=== PATIENT | male | born 1990 | race American Indian/Alaskan Native ===

== ENCOUNTER 2016-10-26 21:22 | Emergency (ER) | payer BC, OTHER ==
[2016-10-26 21:28] VITALS: BP 137/76; PULSE 78; RESP 16; TEMP 97.5; O2SAT 96
--- NOTE | 2016-10-26 21:50 | ED PDOC ---
HPI: Skin/Bite Injury Time Seen by Provider: 10/26/16 21:30 Chief Complaint (Nursing): Abnormal Skin Integrity Chief Complaint (Provider): andmormal skin integrity History Per: Patient History/Exam Limitations: no limitations Onset/Duration Of Symptoms: Days (x 3) Current Symptoms Are (Timing): Still Present Additional Complaint(s): Dominic Hope is a 26 year old male, with no previous medical complaints, who presents to the ED with complaints of "boils" on his right inner thigh. Pt reports chills. Pt denies any fever or vomiting. Pt denies any additional complaints at this time. PMD: none provided Past Medical History Reviewed: Historical Data, Nursing Documentation, Vital Signs Vital Signs: Last Vital Signs Temp 97.5 F L 10/26/16 21:25 Pulse 78 10/26/16 21:25 Resp 16 10/26/16 21:25 BP 137/76 10/26/16 21:25 Pulse Ox 96 10/26/16 21:55 - Medical History PMH: Anxiety, Asthma - Surgical History Surgical History: No Surg Hx - Family History Family History: States: No Known Family Hx - Immunization History Hx Tetanus Toxoid Vaccination: No Hx Influenza Vaccination: No Hx Pneumococcal Vaccination: No - Home Medications Home Medications: Ambulatory Orders Medication Instructions Recorded Cephalexin [cephalexin] 500 mg PO BID #20 cap 10/26/16 Sulfamethoxazole/Trimethoprim 1 tab PO BID #14 tab 10/26/16 [Bactrim DS 800 mg-160 mg] - Allergies Allergies/Adverse Reactions: Allergies Allergy/AdvReac Type Severity Reaction Status Date / Time No Known Allergies Allergy Verified 05/13/16 18:05 Review of Systems ROS Statement: Except As Marked, All Systems Reviewed And Found Negative Skin: Positive for: Other ("boils" ) Physical Exam - Reviewed Nursing Documentation Reviewed: Yes Vital Signs Reviewed: Yes - Physical Exam Appears: Positive for: Well, Non-toxic, No Acute Distress Head Exam: Positive for: ATRAUMATIC, NORMAL INSPECTION, NORMOCEPHALIC Skin: Positive for: Normal Color, Warm, Dry Neurologic/Psych: Positive for: Alert, Oriented Comments: Inner right groin fluctuant center of a 5x3cm lesion with multiple white heads. Tender to palpation. streaking noted. no testicular swelling noted. - ECG O2 Sat by Pulse Oximetry: 96 (RA) Pulse Ox Interpretation: Normal Medical Decision Making Medical Decision Making: Initial Impression: Abscess Initial Plan: * Drainage #11 scaple 10cc of pus drainage. * reevaluation - pt with streaking and erythema around abscess. * will d/c with keflex and bactim strongly advised to use warm compress to area and to return to ED if lesion worses as indication of warren abx PO tx. pt understands. Scribe Attestation: Documented by Theresa Salmon, acting as a scribe for Cyndee Lux PA-C. Provider Scribe Attestation: All medical record entries made by the Scribe were at my direction and personally dictated by me. I have reviewed the chart and agree that the record accurately reflects my personal performance of the history, physical exam, medical decision making, and the department course for this patient. I have also personally directed, reviewed, and agree with the discharge instructions and disposition Disposition - Clinical Impression Clinical Impression: Abscess - Patient ED Disposition Is Patient to be Admitted: No Counseled Patient/Family Regarding: Diagnosis, Need For Followup, Rx Given - Disposition Disposition: Routine/Home Disposition Time: 22:18 Condition: STABLE Prescriptions: Sulfamethoxazole/Trimethoprim [Bactrim DS 800 mg-160 mg] 1 tab PO BID #14 tab Cephalexin [cephalexin] 500 mg PO BID #20 cap Instructions: Abscess (ED) Forms: [facility] ED School/Work Excuse
== END 2016-10-26 22:24 | disposition home or self-care (01) ==
LOC: H.ER 21:22
DX: L02.91 Cutaneous abscess, unspecified (principal)

== ENCOUNTER 2017-06-20 04:57 | Emergency (ER) | payer BC ==
[2017-06-20] MEDS ORDERED: Oxycodone/Acetaminophen 5/325 mg Tab PO ONE (05:17)
[2017-06-20] MEDS ORDERED: Oxycodone/Acetaminophen 5/325 mg Tab ONE (05:22)
--- NOTE | 2017-06-20 05:26 | ED PDOC ---
HPI: Skin/Bite Injury Time Seen by Provider: 06/20/17 05:10 Chief Complaint (Nursing): Abnormal Skin Integrity Chief Complaint (Provider): left buttock pain History Per: Patient History/Exam Limitations: no limitations Onset/Duration Of Symptoms: Days (1 week) Current Symptoms Are (Timing): Still Present Location Of Injury: Left: Buttock Quality Of Symptoms: Painful Additional History Per: Patient Additional Complaint(s): 27 y/o male presents with left buttock pain x 1 week. Patient states he has had an abscess before and thinks that what this could be. Denies fever, drainage, nausea/vomiting, abdominal pain, changes in bowel movements. No medication taken for relief thus far. Past Medical History Reviewed: Historical Data, Nursing Documentation, Vital Signs Vital Signs: Last Vital Signs Temp 98.6 F 06/20/17 05:09 Pulse 90 06/20/17 05:09 Resp 18 06/20/17 05:09 BP 154/97 H 06/20/17 05:09 Pulse Ox 100 06/20/17 05:29 - Medical History PMH: Anxiety, Asthma - Surgical History Surgical History: No Surg Hx - Family History Family History: States: Unknown Family Hx - Living Arrangements Living Arrangements: With Family - Immunization History Hx Tetanus Toxoid Vaccination: No Hx Influenza Vaccination: No Hx Pneumococcal Vaccination: No - Home Medications Home Medications: Ambulatory Orders Medication Instructions Recorded Cephalexin [cephalexin] 500 mg PO BID #20 cap 10/26/16 Sulfamethoxazole/Trimethoprim 1 tab PO BID #14 tab 10/26/16 [Bactrim DS 800 mg-160 mg] - Allergies Allergies/Adverse Reactions: Allergies Allergy/AdvReac Type Severity Reaction Status Date / Time No Known Allergies Allergy Verified 05/13/16 18:05 Review of Systems ROS Statement: Except As Marked, All Systems Reviewed And Found Negative Skin: Positive for: Other (left buttock pain) Physical Exam - Reviewed Nursing Documentation Reviewed: Yes Vital Signs Reviewed: Yes - Physical Exam Appears: Positive for: Well, Non-toxic, No Acute Distress Cardiovascular/Chest: Positive for: Regular Rate, Rhythm Respiratory: Positive for: Normal Breath Sounds Gastrointestinal/Abdominal: Positive for: Normal Exam Rectal: Positive for: Deferred (refused rectal exam), Other (tender to palpate 9 :00 daniel-rectal position; no lesion, drainage, fluctaunce noted. Exam pharmacists Anuj CHAVIRA). Negative for: Hemorrhoids Extremity: Positive for: Normal ROM Neurologic/Psych: Positive for: Alert, Oriented - ECG O2 Sat by Pulse Oximetry: 100 - Progress ED Course And Treament: Percocet PO, labs, CT pelvis with IV contrast ordered to r/out daniel-rectal abscess Disposition - Clinical Impression Clinical Impression: Left buttock pain - Patient ED Disposition Is Patient to be Admitted: No - Disposition Disposition: Transfer of Care Disposition Time: 06:00 Condition: STABLE Forms: [employer] (Icelandic) Patient Signed Over To: Joel Valle Handoff Comments: pending labs, CT
[2017-06-20 06:06] LABS: BASO # 0.2 K/uL (0.0-0.2); BASO % 1.1 % (0.0-2.0); EOS # 0.1 K/uL (0.0-0.7); EOS % 1.1 % (0.0-4.0); HEMATOCRIT 42.2 % (35.0-51.0); LYMPH # 3.1 K/uL (1.0-4.3); MEAN CELL VOLUME 77.3 fl (80.0-94.0); MEAN CORPUSCULAR HGB CONC 31.1 g/dL (33.0-37.0); MEAN PLATELET VOLUME 8.8 fl (7.2-11.7); MONO # 1.2 K/uL (0.0-0.8); MONO % 8.7 % (0.0-10.0); NEUT # 9.1 K/uL (1.8-7.0); NEUT % 66.1 % (50.0-75.0); NRBC % 0.1 % (0.0-0.0); RED CELL DISTRIBUTION WIDTH 14.1 % (11.5-14.5); WHITE BLOOD COUNT 13.7 K/uL (4.8-10.8)
--- NOTE | 2017-06-20 06:10 | ED PDOC ---
- Laboratory Results Result Diagrams: 06/20/17 05:35 06/20/17 05:35 - ECG O2 Sat by Pulse Oximetry: 100 Medical Decision Making Medical Decision Makin Patient signed out to me from DARRELL Cesar pending CT and labs. 699 Patient signed out from me to Dr. Chaidez pending CT and lab work. Scribe Attestation: Documented by Kellie Huggins acting as a scribe for Joel Valle MD. Scribe Attestation: All medical record entries made by the Scribe were at my direction and personally dictated by me. I have reviewed the chart and agree that the record accurately reflects my personal performance of the history, physical exam, medical decision making, and the department course for this patient. I have also personally directed, reviewed, and agree with the discharge instructions and disposition. Disposition - Clinical Impression Clinical Impression: Left buttock pain, Perianal cellulitis - POA Present On Arrival: None - Disposition Disposition: Transfer of Care Disposition Time: 07:00 Condition: FAIR Patient Signed Over To: Gianni Chaidez Handoff Comments: pending CT and labs
[2017-06-20 06:15] LABS: PARTIAL THROMBOPLASTIN TIME 32.9 Seconds (25.6-37.1)
[2017-06-20 06:29] LABS: ALB/GLOB RATIO 1.5 (1.0-2.1); ALKALINE PHOSPHATASE 63 U/L (38-126); ALT/SGPT 42 U/L (21-72); AST/SGOT 30 U/L (17-59); BILIRUBIN,TOTAL 0.7 mg/dl (0.2-1.3); BLOOD UREA NITROGEN 15 mg/dl (9-20); CALCIUM 9.6 mg/dL (8.4-10.2); CARBON DIOXIDE 27 mmol/L (22-30); CHLORIDE 104 mmol/L (98-107); GFR AFRICAN-AMERICAN > 60; GLUCOSE,RANDOM 97 mg/dL (75-110); POTASSIUM 4.1 MMOL/L (3.6-5.0); SODIUM 137 mmol/l (132-148); TOTAL PROTEIN 7.9 G/DL (6.3-8.2)
--- NOTE | 2017-06-20 06:59 | ED PDOC ---
- Laboratory Results Result Diagrams: 06/20/17 05:35 06/20/17 05:35 - ECG O2 Sat by Pulse Oximetry: 100 (RA) Pulse Ox Interpretation: Normal Medical Decision Making Medical Decision Making: Patient signed out to provider at [address] Pending CT and reevaluation. Rectal exam reveals tenderness and induration left perianal area. No fluctuance. CT reveals early abscess but no clinical abscess on exam. Scribe Attestation Documented by Alma Rosa Norwood acting as a scribe for Gianni Chaidez MD. Provider Attestation All medical record entries made by the Scribe were at my direction and personally dictated by me. I have reviewed the chart and agree that the record accurately reflects my personal performance of the history, physical exam, medical decision making, and the department course for this patient. I have also personally directed, reviewed, and agree with the discharge instructions and disposition. Disposition - Clinical Impression Clinical Impression: Left buttock pain, Perianal cellulitis - POA Present On Arrival: None - Disposition Referrals: [facility] [Outside] Disposition: Routine/Home Disposition Time: 09:31 Condition: FAIR Prescriptions: Amoxicillin/Potassium Clav [Augmentin 500 mg-125 mg] 1 tab PO TID #30 tab traMADol [Ultram] 50 mg PO Q8 #10 tab Instructions: Cellulitis (ED) Forms: [employer] (Polish)
[2017-06-20] MEDS ORDERED: Iohexol 300 100 ML IJ ONE (07:50)
[2017-06-20] MEDS ORDERED: Sodium Chloride 0.9% 50 ML IV ONE (07:50)
--- NOTE | 2017-06-20 09:16 | CT ---
PROCEDURE: CT Pelvis with contrast HISTORY: r/out daniel-rectal abscess COMPARISON: None. TECHNIQUE: Contiguous axial images of the pelvis with contrast. Coronal and sagittal reformats generated. Contrast dose: 95 mL omni 300 Radiation dose: Total exam DLP = 673 mGy-cm. This CT exam was performed using one or more of the following dose reduction techniques: Automated exposure control, adjustment of the mA and/or kV according to patient size, and/or use of iterative reconstruction technique. FINDINGS: BLADDER: Unremarkable. No mass. REPRODUCTIVE ORGANS: Unremarkable. VISUALIZED BOWEL: Unremarkable. PERITONEUM: Unremarkable, as visualized. No free fluid. No free air. LYMPH NODES: Unremarkable. No enlarged lymph nodes. VASCULATURE: Unremarkable. BONES: No fracture or focal lesion. OTHER FINDINGS: There is evidence of a small round inflammatory process in the inferior left posterior perineal region posterior to the rectum. This measures 2.5 x 2.4 x 1.9 centimeters. Small amount of low density is seen centrally and there is some mild induration of the adjacent fat. Finding is consistent with a small perirectal or perineal abscess. Remainder of the rectum is otherwise unremarkable. IMPRESSION: Small posterior peritoneal inflammatory process with a mild amount of low density centrally suggestive of a perineal abscess. Remainder of the examination is otherwise unremarkable.
[2017-06-20 09:41] VITALS: BP 123/77; PULSE 66; RESP 16; TEMP 98.1
[2017-06-21 00:58] VITALS: O2SAT 100
== END 2017-06-20 09:44 | disposition home or self-care (01) ==
LOC: H.ER 04:57
DX: L03.315 Cellulitis of perineum (principal); F41.9 Anxiety disorder, unspecified; J45.909 Unspecified asthma, uncomplicated
CPT/HCPCS: 72193; 80053; 85025; 85610; 85730; 99283; Q9967

== ENCOUNTER 2017-06-20 20:36 | Inpatient (IN) | payer BC ==
[2017-06-20] MEDS ORDERED: Sodium Chloride 0.9% 1,000 ML IV STA (21:00)
[2017-06-20] MEDS ORDERED: Oxycodone/Acetaminophen 5/325 mg Tab PO ONE (21:00)
--- NOTE | 2017-06-20 21:21 | ED PDOC ---
HPI: Skin/Bite Injury Time Seen by Provider: 06/20/17 20:48 Chief Complaint (Nursing): Abnormal Skin Integrity Chief Complaint (Provider): left buttock pain History Per: Patient History/Exam Limitations: no limitations Onset/Duration Of Symptoms: Days (8) Current Symptoms Are (Timing): Still Present Location Of Injury: Left: Buttock Quality Of Symptoms: Painful Additional History Per: Patient Additional Complaint(s): 27 y/o male presents with pain to left inner buttock x 8 days. Patient was evaluated here yesterday for same, CT showed early perineal vs perirectal abscess. Patient states he was discharged with antibiotics but did not take them because he "doesn't like taking medications". Patient states pain worse when laying down. Denies fever, nausea/vomiting, abdominal pain, changes in bowel movements, drainage at site of pain. Past Medical History Reviewed: Historical Data, Nursing Documentation, Vital Signs Vital Signs: Last Vital Signs Temp 98.3 F 06/20/17 22:16 Pulse 84 06/20/17 22:16 Resp 14 06/20/17 22:16 BP 131/85 06/20/17 22:16 Pulse Ox 99 06/20/17 22:11 - Medical History PMH: Anxiety, Asthma - Surgical History Surgical History: No Surg Hx - Family History Family History: States: Unknown Family Hx - Immunization History Hx Tetanus Toxoid Vaccination: No Hx Influenza Vaccination: No Hx Pneumococcal Vaccination: No - Home Medications Home Medications: Ambulatory Orders Medication Instructions Recorded No Known Home Med 06/20/17 - Allergies Allergies/Adverse Reactions: Allergies Allergy/AdvReac Type Severity Reaction Status Date / Time No Known Allergies Allergy Verified 05/13/16 18:05 Review of Systems ROS Statement: Except As Marked, All Systems Reviewed And Found Negative Skin: Positive for: Other (left inner buttock pain) Physical Exam - Reviewed Nursing Documentation Reviewed: Yes Vital Signs Reviewed: Yes - Physical Exam Appears: Positive for: Well, Non-toxic, No Acute Distress Head Exam: Positive for: ATRAUMATIC, NORMAL INSPECTION, NORMOCEPHALIC Skin: Positive for: Normal Color Eye Exam: Positive for: Normal appearance Cardiovascular/Chest: Positive for: Regular Rate, Rhythm Respiratory: Positive for: Normal Breath Sounds Rectal: Positive for: Deferred, Other (tender area with induration noted left daniel-rectal area; no lesion, fluctuance. Yahir Leung RN) Extremity: Positive for: Normal ROM Neurologic/Psych: Positive for: Alert, Oriented - Laboratory Results Result Diagrams: 06/20/17 21:15 06/20/17 21:15 - ECG O2 Sat by Pulse Oximetry: 99 - Progress ED Course And Treament: Case discussed with ED attending Dr. Orona, will repeat labs, draw blood cx, admit for IV abx, and surgical consult labs, IV zosyn, PO percocet Case discussed with Dr. Bernardo, Surgeon on-call regarding consult. Case discussed with Dr. Sanchez, assistant to the president on-call, regarding consult. Case discussed with Dr. Wiggins, Hospitalist on-call, for admission. Disposition - Clinical Impression Clinical Impression: Perirectal abscess - Patient ED Disposition Is Patient to be Admitted: Yes - Disposition Disposition Time: 22:11 Condition: FAIR
[2017-06-20 21:25] LABS: BASO # 0.1 K/uL (0.0-0.2); BASO % 0.8 % (0.0-2.0); EOS # 0.2 K/uL (0.0-0.7); EOS % 1.2 % (0.0-4.0); LYMPH # 2.7 K/uL (1.0-4.3); LYMPH % 20.4 % (20.0-40.0); MEAN CELL VOLUME 76.8 fl (80.0-94.0); MEAN CORPUSCULAR HEMOGLOBIN 23.9 pg (27.0-31.0); MEAN CORPUSCULAR HGB CONC 31.1 g/dL (33.0-37.0); MEAN PLATELET VOLUME 8.5 fl (7.2-11.7); MONO # 1.2 K/uL (0.0-0.8); NEUT # 9.1 K/uL (1.8-7.0); NEUT % 68.6 % (50.0-75.0); RED CELL DISTRIBUTION WIDTH 13.9 % (11.5-14.5); WHITE BLOOD COUNT 13.3 K/uL (4.8-10.8)
[2017-06-20] MEDS ORDERED: Piperacillin/Tazobact 3.375 GM in Sodium Chloride 0.9% 100 ML IV ONE (21:30)
[2017-06-20 21:36] LABS: ALB/GLOB RATIO 1.5 (1.0-2.1); ALCOHOL SERUM < 10 mg/dl (0-10); ALKALINE PHOSPHATASE 63 U/L (38-126); ALT/SGPT 40 U/L (21-72); AST/SGOT 27 U/L (17-59); BILIRUBIN,TOTAL 0.3 mg/dl (0.2-1.3); BLOOD UREA NITROGEN 14 mg/dl (9-20); CALCIUM 9.7 mg/dL (8.4-10.2); CARBON DIOXIDE 25 mmol/L (22-30); CHLORIDE 105 mmol/L (98-107); GFR AFRICAN-AMERICAN > 60; GLUCOSE,RANDOM 102 mg/dL (75-110); POTASSIUM 4.3 MMOL/L (3.6-5.0); SODIUM 142 mmol/l (132-148); TOTAL PROTEIN 7.8 G/DL (6.3-8.2)
--- NOTE | 2017-06-20 22:42 | CP.PCM.HP ---
History of Present Illness - History of Present Illness History of Present Illness: PCP: None Chief complaint: Left buttock pain The patient is seen and examined in the ED HPI: 27 years old male with hx of Asthma and possibly perirectal abscess, came to the ED with 8 days of pain at the left intergluteal region, which increases when he sits or lie down on his back. The pain has been continuous. He came to the ED earlier today but was discharged on antibiotics which he has not taken because the pain is worse.No fever, diarrhea, constipation, dysuria nor urinary frequencies. No abdominal pain. 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 PSH: Denies SH: Light smoker; Social use of Alcohol; No illegal drug use FH: States: Unknown Family Hx Allergies: NKDA Medication: Not using any medication Present on Admission - Present on Admission Any Indicators Present on Admission: No History of DVT/PE: No History of Uncontrolled Diabetes: No Urinary Catheter: No Decubitus Ulcer Present: No Review of Systems - Constitutional Constitutional: absent: Chills, Fatigue, Fever, Frequent Falls, Headache - EENT Eyes: absent: Diplopia, Floaters, Requires Corrective Lenses, Sees Flashes Ears: absent: Decreased Hearing, Ear Discharge, Ear Pain, Tinnitus Nose/Mouth/Throat: absent: Epistaxis, Nasal Congestion, Sinus Pain, Sinus Pressure - Cardiovascular Cardiovascular: Dyspnea. absent: Chest Pain, Edema - Respiratory Respiratory: Cough, Dyspnea, Wheezing - Gastrointestinal Gastrointestinal: absent: Constipation, Diarrhea, Nausea, Vomiting - Genitourinary Genitourinary: absent: Dysuria, Flank Pain, Hematuria, Urinary Frequency - Musculoskeletal Musculoskeletal: absent: Arthralgias, Back Pain, Muscle Weakness, Numbness - Integumentary Integumentary: Change in Nails. absent: Pruritus, Rash, Skin Ulcer, Sores, Striae, Swelling Additional comments: third nail of the left foot with blackened and thickened nail - Neurological Neurological: Headaches. absent: Confusion, Dizziness, Focal Weakness, Loss of Vision - Psychiatric Psychiatric: absent: Anxiety, Depression, Panic Attacks - Endocrine Endocrine: absent: Palpitations, Polydipsia, Polyphagia, Polyuria - Hematologic/Lymphatic Hematologic: absent: Easy Bleeding, Easy Bruising Past Patient History - Past Medical History & Family History Past Medical History?: Yes - Past Social History Smoking Status: Light Smoker < 10 Cigarettes Daily Chewing Tobacco Use: No Cigar Use: No Alcohol: Social Home Situation {Lives}: With Family - CARDIAC Hx Cardiac Disorders: No - PULMONARY Hx Respiratory Disorders: Yes Hx Asthma: Yes - NEUROLOGICAL Hx Neurological Disorder: No - HEENT Hx HEENT Problems: No - RENAL Hx Chronic Kidney Disease: No - ENDOCRINE/METABOLIC Hx Endocrine Disorders: No - HEMATOLOGICAL/ONCOLOGICAL Hx Blood Disorders: No - INTEGUMENTARY Hx Dermatological Problems: No - MUSCULOSKELETAL/RHEUMATOLOGICAL Hx Musculoskeletal Disorders: No - GASTROINTESTINAL Hx Gastrointestinal Disorders: No - GENITOURINARY/GYNECOLOGICAL Hx Genitourinary Disorders: No - PSYCHIATRIC Hx Psychophysiologic Disorder: Yes Hx Anxiety: Yes - SURGICAL HISTORY Hx Surgeries: No - ANESTHESIA Hx Anesthesia: No Meds Allergies/Adverse Reactions: Allergies Allergy/AdvReac Type Severity Reaction Status Date / Time No Known Allergies Allergy Verified 05/13/16 18:05 Physical Exam - Constitutional Appears: No Acute Distress - Head Exam Head Exam: ATRAUMATIC, NORMAL INSPECTION, NORMOCEPHALIC - Eye Exam Eye Exam: EOMI, Normal appearance Pupil Exam: NORMAL ACCOMODATION, PERRL - ENT Exam ENT Exam: Mucous Membranes Moist, Normal Exam, Normal External Ear Exam - Neck Exam Neck exam: Positive for: Full Rom, Normal Inspection. Negative for: Lymphadenopathy, Tenderness - Respiratory Exam Respiratory Exam: Clear to Auscultation Bilateral. absent: Rales, Rhonchi, Wheezes - Cardiovascular Exam Cardiovascular Exam: REGULAR RHYTHM, RRR, +S1, +S2. absent: Gallop - GI/Abdominal Exam GI & Abdominal Exam: Normal Bowel Sounds, Soft. absent: Mass, Tenderness - Rectal Exam Additional comments: Left intergluteal with tender induration with no drainage. - Extremities Exam Extremities exam: Positive for: full ROM, normal inspection. Negative for: calf tenderness, pedal edema - Back Exam Back exam: NORMAL INSPECTION. absent: CVA tenderness (L), CVA tenderness (R) - Neurological Exam Neurological exam: Alert, CN II-XII Intact, Oriented x3, Reflexes Normal - Psychiatric Exam Psychiatric exam: Normal Affect, Normal Mood - Skin Skin Exam: Dry, Intact, Normal Color, Warm Results - Vital Signs Recent Vital Signs: Last Vital Signs Temp 98.3 F 06/20/17 22:16 Pulse 84 06/20/17 22:16 Resp 14 06/20/17 22:16 BP 131/85 06/20/17 22:16 Pulse Ox 99 06/20/17 22:11 - Labs Result Diagrams: 06/20/17 21:15 06/20/17 21:15 Labs: Laboratory Results - last 24 hr 06/20/17 06/20/17 06/20/17 21:15 21:15 21:15 WBC 13.3 H RBC 5.47 Hgb 13.1 Hct 42.0 MCV 76.8 L MCH 23.9 L MCHC 31.1 L RDW 13.9 Plt Count 240 MPV 8.5 Neut % (Auto) 68.6 Lymph % (Auto) 20.4 [place] % (Auto) 9.0 Eos % (Auto) 1.2 Baso % (Auto) 0.8 Neut # 9.1 H Lymph # 2.7 [place] # 1.2 H Eos # 0.2 Baso # 0.1 Sodium 142 Potassium 4.3 Chloride 105 Carbon Dioxide 25 Anion Gap 16 BUN 14 Creatinine 0.9 Est GFR ( Amer) > 60 Est GFR (Non-Af Amer) > 60 Random Glucose 102 Lactic Acid 1.1 Calcium 9.7 Total Bilirubin 0.3 AST 27 ALT 40 Alkaline Phosphatase 63 Total Protein 7.8 Albumin 4.7 Globulin 3.1 Albumin/Globulin Ratio 1.5 Alcohol, Quantitative < 10 - Imaging and Cardiology CT scan - pelvis Status: Report reviewed by me Additional comment: Small Posterior Peritoneal inflammatory process with mild amount of low density centrally , suggestion of Perineal abscess. Assessment & Plan - Assessment and Plan (Free Text) Assessment: #. Left Perianal abscess #. leukocytosis Plan: 27 years old male with hx of Asthma and possibly perirectal abscess, came to the ED with 8 days of pain at the left intergluteal region. Earlier in the day , he came to the EDwith the same problem, but was discharged on antibiotics. #. Left Perianal abscess - Consult Dr Bernardo surgeon - follow blood culture - Zosyn - Pain management with Toradol #. leukocytosis - Follow WBC #. DVT Prophylaxis with SCD #. Code Status: Full - Date & Time Date: 06/20/17 Time: 22:42
[2017-06-20] MEDS ORDERED: Albuterol 0.083% Inhal Sol (2.5 mg/3 mL) UD INH PRN (23:05)
[2017-06-20] MEDS: Sodium Chloride 0.9% 1,000 ML IV SCH (23:20)
--- NOTE | 2017-06-21 00:02 | CP.PCM.CON ---
History of Present Illness - History of Present Illness History of Present Illness: General Surgery Consult Note for Dr. Bernardo Reason for consult: perirectal abscess 27 M with PMH of asthma presents to ED for complaint of left gluteal pain. He states that he had the pain for 8 days. He states that he have never experienced this pain before. He reports a gradual onset and states it has gotten progressively worse. Patient was in th ED earlier in the day and was subsequently discharged on oral antibiotics. Patient nevern filled the precription and returned to the ED because he could not endure the pain. He rates pain as severe. He describes the pain as constant and sharp located in the left gluteal fold. Denies any alleviating factors. he reports the pain is exacerbated by sitting or lying down on his backside. PMD: Denies PMH: Asthma Allergies: NKDA Meds: Denies PSH: Denies FH: Unknown Social: current smoker 5-10 cigarettes per day; EtOH socially; Denies illicit drug use Review of Systems - Review of Systems All systems: reviewed and no additional remarkable complaints except (left gluteal pain) Past Patient History - Past Medical History & Family History Past Medical History?: Yes - Past Social History Smoking Status: Light Smoker < 10 Cigarettes Daily Chewing Tobacco Use: No Cigar Use: No Alcohol: Social Home Situation {Lives}: With Family - CARDIAC Hx Cardiac Disorders: No - PULMONARY Hx Respiratory Disorders: Yes Hx Asthma: Yes - NEUROLOGICAL Hx Neurological Disorder: No - HEENT Hx HEENT Problems: No - RENAL Hx Chronic Kidney Disease: No - ENDOCRINE/METABOLIC Hx Endocrine Disorders: No - HEMATOLOGICAL/ONCOLOGICAL Hx Blood Disorders: No - INTEGUMENTARY Hx Dermatological Problems: No - MUSCULOSKELETAL/RHEUMATOLOGICAL Hx Musculoskeletal Disorders: No - GASTROINTESTINAL Hx Gastrointestinal Disorders: No - GENITOURINARY/GYNECOLOGICAL Hx Genitourinary Disorders: No - PSYCHIATRIC Hx Psychophysiologic Disorder: No - SURGICAL HISTORY Hx Surgeries: No - ANESTHESIA Hx Anesthesia: No Meds Allergies/Adverse Reactions: Allergies Allergy/AdvReac Type Severity Reaction Status Date / Time No Known Allergies Allergy Verified 05/13/16 18:05 - Medications Medications: Current Medications Albuterol Sulfate (Albuterol 0.083% Inhal [place] (2.5 Mg/3 Ml) Ud) 2.5 mg INH RQ6 PRN PRN Reason: Shortness of Breath Piperacillin Sod/Tazobactam (Sod 3.375 gm/ Sodium Chloride) 100 mls @ 100 mls/ hr IVPB Q6 JORJE PRN Reason: Protocol Sodium Chloride (Sodium Chloride 0.9%) 1,000 mls @ 100 mls/hr IV .Q10H [facility] Stop: 06/21/17 23:03 Last Admin: 06/20/17 23:20 Dose: 100 mls/hr Ketorolac Tromethamine (Toradol) 15 mg IVP Q6 PRN PRN Reason: Pain, moderate (4-7) Ketorolac Tromethamine (Toradol) 30 mg IVP Q6 PRN PRN Reason: Pain, severe (8-10) Physical Exam - Constitutional Appears: No Acute Distress - Head Exam Head Exam: ATRAUMATIC, NORMOCEPHALIC - Eye Exam Eye Exam: EOMI, Normal appearance Pupil Exam: PERRL - ENT Exam ENT Exam: Mucous Membranes Moist - Respiratory Exam Respiratory Exam: NORMAL BREATHING PATTERN - Cardiovascular Exam Cardiovascular Exam: REGULAR RHYTHM - GI/Abdominal Exam GI & Abdominal Exam: Soft. absent: Distended, Firm, Guarding, Rebound, Tenderness - Rectal Exam Rectal Exam: Deferred (refused) - Extremities Exam Extremities exam: Positive for: normal capillary refill, pedal pulses present - Neurological Exam Neurological exam: Alert, CN II-XII Intact, Oriented x3 - Psychiatric Exam Psychiatric exam: Normal Affect, Normal Mood - Skin Skin Exam: Dry, Warm Additional comments: Left gluteal fold indurated, no fluctuance or erythema, tender to touch Results - Vital Signs Recent Vital Signs: Last Vital Signs Temp 98.2 F 06/20/17 22:56 Pulse 66 06/20/17 22:56 Resp 20 06/20/17 22:56 BP 116/75 06/20/17 22:56 Pulse Ox 98 06/20/17 22:56 - Labs Result Diagrams: 06/21/17 07:30 06/21/17 07:30 Labs: Laboratory Results - last 24 hr 06/20/17 06/20/17 06/20/17 21:15 21:15 21:15 WBC 13.3 H RBC 5.47 Hgb 13.1 Hct 42.0 MCV 76.8 L MCH 23.9 L MCHC 31.1 L RDW 13.9 Plt Count 240 MPV 8.5 Neut % (Auto) 68.6 Lymph % (Auto) 20.4 [place] % (Auto) 9.0 Eos % (Auto) 1.2 Baso % (Auto) 0.8 Neut # 9.1 H Lymph # 2.7 [place] # 1.2 H Eos # 0.2 Baso # 0.1 Sodium 142 Potassium 4.3 Chloride 105 Carbon Dioxide 25 Anion Gap 16 BUN 14 Creatinine 0.9 Est GFR ( Amer) > 60 Est GFR (Non-Af Amer) > 60 Random Glucose 102 Lactic Acid 1.1 Calcium 9.7 Total Bilirubin 0.3 AST 27 ALT 40 Alkaline Phosphatase 63 Total Protein 7.8 Albumin 4.7 Globulin 3.1 Albumin/Globulin Ratio 1.5 Alcohol, Quantitative < 10 Assessment & Plan - Assessment and Plan (Free Text) Plan: 27 M with perirectal abscess -IV fluids -IV antibiotics -Analgesics PRN -Discussed with Dr. Az Altamirano PGY1
[2017-06-21] MEDS ORDERED: Chlorhexidine Gluconate 1 APPL/PKT TP ONE (00:10)
[2017-06-21] MEDS: Piperacillin/Tazobact 3.375 GM in Sodium Chloride 0.9% 100 ML IVPB SCH ×3 (04:50→17:05)
[2017-06-21 07:53] LABS: MEAN CELL VOLUME 77.6 fl (80.0-94.0); MEAN CORPUSCULAR HEMOGLOBIN 23.8 pg (27.0-31.0); MEAN CORPUSCULAR HGB CONC 30.6 g/dL (33.0-37.0); RED CELL DISTRIBUTION WIDTH 14.2 % (11.5-14.5); WHITE BLOOD COUNT 13.8 K/uL (4.8-10.8)
[2017-06-21 08:18] LABS: BLOOD UREA NITROGEN 10 mg/dl (9-20); CALCIUM 9.1 mg/dL (8.4-10.2); CARBON DIOXIDE 28 mmol/L (22-30); CHLORIDE 106 mmol/L (98-107); GFR AFRICAN-AMERICAN > 60; GLUCOSE,RANDOM 95 mg/dL (75-110); POTASSIUM 4.1 MMOL/L (3.6-5.0); SODIUM 140 mmol/l (132-148)
--- NOTE | 2017-06-21 10:45 | CP.PCM.PN ---
Subjective - Date & Time of Evaluation Date of Evaluation: 06/21/17 Time of Evaluation: 10:30 - Subjective Subjective: No fever complains of perirectal pain no CP no SOB no abd pain Objective - Vital Signs/Intake and Output Vital Signs (last 24 hours): Temp Pulse Resp BP Pulse Ox 98.6 F 66 20 121/75 99 06/21/17 08:26 06/21/17 08:26 06/21/17 08:26 06/21/17 08:26 06/21/17 08:26 - Medications Medications: Current Medications Albuterol Sulfate (Albuterol 0.083% Inhal [place] (2.5 Mg/3 Ml) Ud) 2.5 mg INH RQ6 PRN PRN Reason: Shortness of Breath Piperacillin Sod/Tazobactam (Sod 3.375 gm/ Sodium Chloride) 100 mls @ 100 mls/ hr IVPB Q6 JORJE PRN Reason: Protocol Last Admin: 06/21/17 04:50 Dose: 100 mls/hr Sodium Chloride (Sodium Chloride 0.9%) 1,000 mls @ 100 mls/hr IV .Q10H [facility] Stop: 06/21/17 23:03 Last Admin: 06/20/17 23:20 Dose: 100 mls/hr Ketorolac Tromethamine (Toradol) 15 mg IVP Q6 PRN PRN Reason: Pain, moderate (4-7) Ketorolac Tromethamine (Toradol) 30 mg IVP Q6 PRN PRN Reason: Pain, severe (8-10) - Labs Labs: 06/21/17 07:30 06/21/17 07:30 PT 14.2 Seconds (9.8-13.1) H 06/21/17 07:30 INR 1.3 (0.9-1.2) H 06/21/17 07:30 APTT 32.0 Seconds (25.6-37.1) 06/21/17 07:30 - Constitutional Appears: No Acute Distress - Head Exam Head Exam: NORMAL INSPECTION, NORMOCEPHALIC - Eye Exam Eye Exam: EOMI, Normal appearance, PERRL Pupil Exam: NORMAL ACCOMODATION - ENT Exam ENT Exam: Mucous Membranes Moist, Normal External Ear Exam - Neck Exam Neck Exam: Full ROM. absent: Meningismus - Respiratory Exam Respiratory Exam: NORMAL BREATHING PATTERN. absent: Respiratory Distress - Cardiovascular Exam Cardiovascular Exam: REGULAR RHYTHM, +S1, +S2 - GI/Abdominal Exam GI & Abdominal Exam: Soft, Normal Bowel Sounds. absent: Tenderness - Rectal Exam Additional comments: left buttock/perianal area tenderness, induration - Extremities Exam Extremities Exam: Full ROM, Normal Inspection. absent: Calf Tenderness, Pedal Edema - Back Exam Back Exam: absent: CVA tenderness (L), CVA tenderness (R) - Neurological Exam Neurological Exam: Abnormal Gait, Alert, Awake, CN II-XII Intact, Normal Gait, Oriented x3 Neuro motor strength exam: Left Upper Extremity: 5, Right Upper Extremity: 5, Left Lower Extremity: 5, Right Lower Extremity: 5 - Psychiatric Exam Psychiatric exam: Normal Affect, Normal Mood - Skin Skin Exam: Dry, Normal Color, Warm Assessment and Plan - Assessment and Plan (Free Text) Assessment: 27 years old male with hx of Asthma and possibly perirectal abscess, came to the ED with 8 days of pain at the left intergluteal region. He was seen aarlier in the day , CT scan showed Perianal abscess . He was d/c home on Po antibiotics however pt came back to the ED with the same problem. #. Left Perianal abscess - Pt started on IV Zosyn - Consult Dr Bernardo surgeon for poss I&D - as per financial institution president, no drainable abscess - rec to cont IV abx - follow blood culture - Pain management with Toradol - Warm compress to area #. DVT Prophylaxis with SCD
[2017-06-21] MEDS: Sodium Chloride 0.9% 1,000 ML IV SCH ×2 (11:07→19:22)
[2017-06-21 15:56] VITALS: BP 143/77; PULSE 68; RESP 18; TEMP 98.3; O2SAT 97
--- NOTE | 2017-06-21 22:15 | CP.PCM.DIS ---
Provider - Provider Date of Admission: 06/20/17 22:10 Attending physician: Jignesh Wiggins Primary care physician: NONE Consults: Dr Bernardo General Surgeon Time Spent in preparation of Discharge (in minutes): 15 Diagnosis - Discharge Diagnosis (1) Neutrophilic leukocytosis Status: Acute (2) Perirectal abscess Status: Acute Hospital Course - Lab Results Lab Results: Micro Results 06/20/17 21:00 Blood-Venous Blood Culture - Preliminary NO GROWTH AFTER 24 HOURS 06/20/17 21:15 Blood-Venous Blood Culture - Preliminary NO GROWTH AFTER 24 HOURS Most Recent Lab Values WBC 13.8 K/uL (4.8-10.8) H 06/21/17 07:30 RBC 5.29 Mil/uL (4.40-5.90) 06/21/17 07:30 Hgb 12.6 g/dL (12.0-18.0) 06/21/17 07:30 Hct 41.0 % (35.0-51.0) 06/21/17 07:30 MCV 77.6 fl (80.0-94.0) L 06/21/17 07:30 MCH 23.8 pg (27.0-31.0) L 06/21/17 07:30 MCHC 30.6 g/dL (33.0-37.0) L 06/21/17 07:30 RDW 14.2 % (11.5-14.5) 06/21/17 07:30 Plt Count 222 K/uL (130-400) 06/21/17 07:30 MPV 8.5 fl (7.2-11.7) 06/20/17 21:15 Neut % (Auto) 68.6 % (50.0-75.0) 06/20/17 21:15 Lymph % (Auto) 20.4 % (20.0-40.0) 06/20/17 21:15 [place] % (Auto) 9.0 % (0.0-10.0) 06/20/17 21:15 Eos % (Auto) 1.2 % (0.0-4.0) 06/20/17 21:15 Baso % (Auto) 0.8 % (0.0-2.0) 06/20/17 21:15 Neut # 9.1 K/uL (1.8-7.0) H 06/20/17 21:15 Lymph # 2.7 K/uL (1.0-4.3) 06/20/17 21:15 [place] # 1.2 K/uL (0.0-0.8) H 06/20/17 21:15 Eos # 0.2 K/uL (0.0-0.7) 06/20/17 21:15 Baso # 0.1 K/uL (0.0-0.2) 06/20/17 21:15 PT 14.2 Seconds (9.8-13.1) H 06/21/17 07:30 INR 1.3 (0.9-1.2) H 06/21/17 07:30 APTT 32.0 Seconds (25.6-37.1) 06/21/17 07:30 Sodium 140 mmol/l (132-148) 06/21/17 07:30 Potassium 4.1 MMOL/L (3.6-5.0) 06/21/17 07:30 Chloride 106 mmol/L (98-107) 06/21/17 07:30 Carbon Dioxide 28 mmol/L (22-30) 06/21/17 07:30 Anion Gap 10 (10-20) 06/21/17 07:30 BUN 10 mg/dl (9-20) 06/21/17 07:30 Creatinine 0.9 mg/dl (0.8-1.5) 06/21/17 07:30 Est GFR ( Amer) > 60 06/21/17 07:30 Est GFR (Non-Af Amer) > 60 06/21/17 07:30 Random Glucose 95 mg/dL (75-110) 06/21/17 07:30 Lactic Acid 1.1 MMOL/L (0.7-2.1) 06/20/17 21:15 Calcium 9.1 mg/dL (8.4-10.2) 06/21/17 07:30 Total Bilirubin 0.3 mg/dl (0.2-1.3) 06/20/17 21:15 AST 27 U/L (17-59) 06/20/17 21:15 ALT 40 U/L (21-72) 06/20/17 21:15 Alkaline Phosphatase 63 U/L (38-126) 06/20/17 21:15 Total Protein 7.8 G/DL (6.3-8.2) 06/20/17 21:15 Albumin 4.7 g/dL (3.5-5.0) 06/20/17 21:15 Globulin 3.1 gm/dL (2.2-3.9) 06/20/17 21:15 Albumin/Globulin Ratio 1.5 (1.0-2.1) 06/20/17 21:15 Urine Opiates Screen Negative (NEGATIVE) 06/21/17 05:00 Urine Methadone Screen Negative (NEGATIVE) 06/21/17 05:00 Ur Barbiturates Screen Negative (NEGATIVE) 06/21/17 05:00 Ur Phencyclidine Scrn Negative (NEGATIVE) 06/21/17 05:00 Ur Amphetamines Screen Negative (NEGATIVE) 06/21/17 05:00 U Benzodiazepines Scrn Negative (NEGATIVE) 06/21/17 05:00 U Oth Cocaine Metabols Negative (NEGATIVE) 06/21/17 05:00 U Cannabinoids Screen Negative (NEGATIVE) 06/21/17 05:00 Alcohol, Quantitative < 10 mg/dl (0-10) 06/20/17 21:15 - Hospital Course Hospital Course: 27 years old male with hx of Asthma and possibly perirectal abscess, came to the ED with 8 days of pain at the left intergluteal region. He was seen earlier in the day , CT scan showed Perianal abscess . He was d/c home on Po antibiotics however pt came back to the ED with the same problem. A&P # left Perianal Abscess - IV Zosyn started Q6H - Dr Bernardo general surgeon consulted - As per educational institution president, No I&D at this time - Continue IV antibiotics - Follow Blood cultures - Pain management with Toradol - Warm compress to affected hi #. Leukocytosis - Follow WBC - Pain management with Toradol - Warm compress to area The patient decided to dign and leave the hospital against medical advice. Risks were explained to him. He was told to fill the prescriptions that ht had in his pos contact his PCP if Fever. worsening Buttock pain, Drainage of the abscess or any symptom that makes him feel sick. Patient Signed AMA Discharge Exam - Head Exam Head Exam: NORMAL INSPECTION, NORMOCEPHALIC Discharge Plan - Follow Up Plan Condition: FAIR Disposition: AGAINST MEDICAL ADVICE Patient education suggested?: No Instructions: Abscess (GEN)
== END 2017-06-21 20:34 | disposition left against medical advice (07) | DRG 395 ==
LOC: H.ER 20:36 → H.ERHOLD 22:10 → H.MEDSURG1 22:47
PROVIDERS: ADMIT Internal Medicine; ATTEND Internal Medicine
DX: K61.2 Anorectal abscess (principal); D72.828 Other elevated white blood cell count; F41.9 Anxiety disorder, unspecified; F17.200 Nicotine dependence, unspecified, uncomplicated; J45.909 Unspecified asthma, uncomplicated